=== PATIENT | female | born 1985 | race African-American/Black ===

== ENCOUNTER 2023-12-06 21:54 | Observation (INO) ==
--- NOTE | 2023-12-06 22:27 | Emergency Department Note ---
Impression & Plan Angioedema ADMIT ED Provider Note HPI: History obtained from patient. The patient is a 38-year-old female with history of hypertension, presents to the emergency department from her correctional facility over concern for left lower lip and jaw swelling. Patient states the swelling developed earlier today. Patient is currently at a correctional facility/[employer] and she was given medications there including IM Solu-Medrol as well as oral Benadryl and oral famotidine without relief of her swelling. Patient denies any shortness of breath, she does not have any angioedema of the tongue, she is tolerating her own secretions without issue on my initial evaluation although she does have impressive swelling mostly to the area of the left lower lip and left lateral mouth. Patient saturating well on room air on arrival. ROS: - Per HPI Differential Diagnosis: PAUL inhibitor induced angioedema, anaphylaxis, infection, amongst other potential pathologies. *Outpatient medications and allergy history reviewed. PE: General: Alert HEENT: Normocephalic, trachea midline, significant swelling of the left lower lip consistent with angioedema, there is no swelling of the tongue or uvula Eyes: Extraocular eye movement is intact, no scleral erythema Pulmonary: Clear to auscultation bilaterally, no wheezing Cardio: Regular rate and rhythm GI: Abdomen is soft to palpation : No suprapubic tenderness MSK: No evidence of trauma or malformation of the extremities, no edema Skin: No evidence of rash Neuro: Alert, no focal deficits Psychiatric: Cooperative INDEPENDENT INTERPRETATIONS: manager monitoring: (As interpreted by myself): - An order was placed for continuous cardiac monitoring - Patient was noted to be in sinus rhythm with a rate of 90 Interventions provided in ED: -IM epinephrine, TXA Medical Decision Making: Patient does have angioedema of the left lower lip on arrival, IV was established and patient was placed on electronic device monitor. Patient was given IM epinephrine as well as TXA for angioedema of the left lower lip which was suspected to be PAUL inhibitor induced. She was taken off of her lisinopril today. Patient did not have much improvement of her angioedema of the left lower lip while here in the ED under observation despite these medications. She also did not have any progression of her swelling, her airway is otherwise patent and she is saturating well on room air without any swelling of the uvula or tongue. Patient denies any known exposure to any allergens, she otherwise does not have any wheezing or stridor on exam. She is tolerating her own secretions without issue. I suspect that her angioedema is likely related to her lisinopril. Given the patient's continued angioedema, I do feel that she would be best served for observation admission overnight. I discussed the patient's pre sentation with the on-call hospitalist, Dr. Durand, and the patient was placed for admission in stable condition. Consultants/Discussions held with other healthcare providers: -Hospitalist, Dr. Durand Diagnosis: 1. Angioedema of the left lower lip, acute 2. Angioedema/swelling of the left lower jawline/mandible, acute 3. PAUL inhibitor induced angioedema, acute Disposition: Admission Regis Elder DO Emergency Medicine Past Med/Surg History Problem List (Updated 12/07/23 @ 01:54 by Regis Elder DO) Angioedema (Acute) Social History Smoking Status: Former smoker Preferred Language: Azerbaijani Feels Safe at Home: Yes Allergies Allergies Allergy/AdvReac Type Severity Reaction Status Date / Time lisinopril Allergy Swelling Verified 12/06/23 23:22 of Lip/Tongue/Throat Home Meds Home Medications Medication Instructions Recorded Confirmed amlodipine 10 mg tablet 10 mg PO DAILY 12/06/23 12/07/23 diphenhydramine HCl 25 mg capsule 25 mg PO BID PRN swelling 12/06/23 12/07/23 (Banophen) famotidine 20 mg tablet 20 mg PO BID 12/07/23 12/07/23 prednisone 10 mg tablet 10 mg PO DIRECTED 12/07/23 12/07/23 sertraline 100 mg tablet 100 mg PO HS 12/07/23 12/07/23 trazodone 100 mg tablet 100 mg PO HS 12/07/23 12/07/23 Results & Data (ED) Vital Signs Vital Signs - 24 hr 12/06/23 21:59 12/06/23 22:26 12/06/23 22:36 Temperature 36.8 C Temperature Source Temporal Artery Scan Pulse Rate 77 73 Pulse Rate [Apical] 83 Pulse Rate from SpO2 Sensor Pulse Rhythm [Apical] Regular Pulse Strength [Apical] Normal Respiratory Rate 20 19 Respiratory Effort / Characteristics Non-Labored Spontaneous Respiratory Depth Normal Respiratory Pattern Regular Blood Pressure 151/91 H Blood Pressure [Left Arm] 150/94 H Blood Pressure Mean 111 Blood Pressure Mean [Left Arm] 112 Pulse Oximetry 99 96 Oxygen Delivery Method Room Air Room Air Sepsis Recent Fever Within 48 Hours No Sepsis New/Unexplained Change in Mental Status No Sepsis Action Taken by Nursing No Action Required 12/06/23 23:03 12/06/23 23:12 12/06/23 23:21 Temperature Temperature Source Pulse Rate 95 H 84 95 H Pulse Rate [Apical] Pulse Rate from SpO2 Sensor 94 H 84 100 H Pulse Rhythm [Apical] Pulse Strength [Apical] Respiratory Rate 22 17 19 Respiratory Effort / Characteristics Respiratory Depth Respiratory Pattern Blood Pressure 139/104 H Blood Pressure [Left Arm] Blood Pressure Mean 115 Blood Pressure Mean [Left Arm] Pulse Oximetry 97 99 99 Oxygen Delivery Method Room Air Room Air Room Air Sepsis Recent Fever Within 48 Hours Sepsis New/Unexplained Change in Mental Status Sepsis Action Taken by Nursing 12/06/23 23:35 Temperature Temperature Source Pulse Rate Pulse Rate [Apical] 93 H Pulse Rate from SpO2 Sensor Pulse Rhythm [Apical] Regular Pulse Strength [Apical] Respiratory Rate 20 Respiratory Effort / Characteristics Non-Labored Spontaneous Respiratory Depth Normal Respiratory Pattern Regular Blood Pressure Blood Pressure [Left Arm] 193/96 H Blood Pressure Mean Blood Pressure Mean [Left Arm] 128 Pulse Oximetry 99 Oxygen Delivery Method Room Air Sepsis Recent Fever Within 48 Hours Sepsis New/Unexplained Change in Mental Status Sepsis Action Taken by Nursing Administered Medications Discontinued Medications Epinephrine HCl (Epinephrine Inj 1 Mg/Ml Amp) 0.3 mg IM NOW STA Stop: 12/06/23 22:27 Last Admin: 12/06/23 22:33 Dose: 0.3 mg Documented By: NANCY Tranexamic Acid (Tranexamic Acid / 0.7% Nacl) 1,000 mg in 100 mls @ 600 mls/hr IV NOW STA Stop: 12/06/23 22:50 Last Infusion: 12/06/23 23:32 Dose: Infused Documented By: Admin: 12/06/23 23:20 Dose: 600 mls/hr Documented By: SUSIE Discharge Plan Visit Data Chief Complaint: Facial Injury/Pain Stated Complaint: SWELLING LIP ED Provider: Regis Elder Discharge Problem: Angioedema Forms Stand Alone Forms: [facility] Prescriptions Prescriptions: No Action amlodipine 10 mg Tablet 10 mg PO DAILY diphenhydramine HCl [Banophen] 25 mg Capsule 25 mg PO BID PRN (Reason: swelling) sertraline 100 mg Tablet 100 mg PO HS trazodone 100 mg Tablet 100 mg PO HS famotidine 20 mg Tablet 20 mg PO BID prednisone 10 mg Tablet 10 mg PO DIRECTED Rx Instructions: see taper instructions: take 4 tablets daily on 12/07/23, take 3 tablets daily on 12/07 & 12/09/23, 2 tablets daily on 12/09 & 12/11/23, 1 tablet daily for 12/11 & 12/13/23 Referrals Referrals: PCP,NO [Physician] - Discharge Problem: Angioedema Qualifiers: Encounter type: initial encounter Qualified Code(s): T78.3XXA - Angioneurotic edema, initial encounter
[2023-12-06] MEDS: EPINEPHrine INJ 1 MG/ML AMP IM STA (22:33)
[2023-12-06] MEDS: TRANEXAMIC ACID / 0.7% NACL 1,000 MG/100 ML BAG IV STA (23:20)
--- NOTE | 2023-12-07 01:50 | History & Physical Report ---
Date of Service December 07, 2023 Assessment & Plan (1) Angioedema: Plan: 38-year-old female with past med history significant for hypertension, depression comes from correctional facility because of angioedema of lower lip and chin. Patient states today after breakfast she noticed swelling of the lower lip. Seems in the correctional facility was treated with a steroid, Benadryl and Pepcid but was not getting better and was sent here. In the ER she received IM epinephrine and TXA. As per the guards the swelling is lot better. Patient's denies any shortness of breath. She is swallowing okay. Denies any fever. No cough. No runny nose. No headache. Vision is okay. No chest pain or shortness of breath. No nausea. No abdominal pain. Normal bowel and bladder movements. Patient states she is coughing a lot lately. She states she was started on lisinopril about 6 months ago. Currently hemodynamics are okay. Angioedema of lower lip and chin region possible cause is lisinopril seems received steroid and Benadryl and Pepcid in the correction facility received TXA and IM epinephrine in the ER seems improving will continue with p.o. prednisone, Zyrtec, Pepcid and IV Benadryl as needed close monitor hypertension continue amlodipine IV labetalol as needed depression Home meds DVT prophylaxis SCDs disposition telemetry full code History of Present Illness Chief Complaint: Angioedema of lower lip and chin Primary Care Provider: THI Bassett 38-year-old female with past med history significant for hypertension, depression comes from correctional facility because of angioedema of lower lip and chin. Patient states today after breakfast she noticed swelling of the lower lip. Seems in the correctional facility was treated with a steroid, Benadryl and Pepcid but was not getting better and was sent here. In the ER she received IM epinephrine and TXA. As per the guards the swelling is lot better. Patient's denies any shortness of breath. She is swallowing okay. Denies any fever. No cough. No runny nose. No headache. Vision is okay. No chest pain or shortness of breath. No nausea. No abdominal pain. Normal bowel and bladder movements. Patient states she is coughing a lot lately. She states she was started on lisinopril about 6 months ago. Currently hemodynamics are okay. Past medical history. As mentioned above past surgical history. Patient denies any surgeries. Social history. Patient denies smoking. Denies alcohol. Denies drug use. Family history. Patient does not know any family history. Allergies Allergy/AdvReac Type Severity Reaction Status Date / Time lisinopril Allergy Swelling Verified 12/06/23 23:22 of Lip/Tongue/Throat Home Medications Medication Instructions Recorded Confirmed Type amlodipine 10 mg tablet 10 mg PO DAILY 12/06/23 12/07/23 History diphenhydramine HCl 25 mg capsule 25 mg PO BID PRN swelling 12/06/23 12/07/23 History (Banophen) famotidine 20 mg tablet 20 mg PO BID 12/07/23 12/07/23 History prednisone 10 mg tablet 10 mg PO DIRECTED 12/07/23 12/07/23 History sertraline 100 mg tablet 100 mg PO HS 12/07/23 12/07/23 History trazodone 100 mg tablet 100 mg PO HS 12/07/23 12/07/23 History Past Med/Surg History Problem List (Updated 12/07/23 @ 01:54 by Regis Elder DO) Angioedema (Acute) Social History Smoking Status: Former smoker Tobacco Type: Cigarettes Hx Alcohol Use: No Hx Substance Use: No Preferred Language: Georgian Communication Ability: Effective Police Or Patrol Park Officer Required: No Beliefs That Will Affect Care: None Current [facility]: [facility] Feels Safe at Home: Yes Review of Systems Review of Systems: All systems reviewed & are unremarkable except as noted in HPI & below Physical Exam Physical Exam: General- Not in distress Head- atraumatic Eyes- PERRL. Face: Lower lip swelling and some swelling of chin seen ENT- oropharynx clear. No obvious tounge swelling seen. Neck- supple, no JVD. Lungs- clear to auscultation , no wheezing or crackles. Heart- regular rate and rhythm; no murmur, no gallop. Abdomen- normal bowel sounds, soft, nontender, no distension. Extremities- no pretibial edema, no erythema seen. Neuro- alert, oriented PERRL,no facial palsy; no dysarthria; moves extremities. Results & Data Results & Data Vital Signs (Past 12 Hours) Vital Signs Temp Pulse Pulse Resp BP BP Pulse Ox 12/06/23 23:35 93 H 20 193/96 H 99 12/06/23 23:21 95 H 19 99 12/06/23 23:12 84 17 99 12/06/23 23:03 95 H 22 139/104 H 97 12/06/23 22:36 83 19 150/94 H 96 12/06/23 22:26 73 12/06/23 21:59 36.8 C 77 20 151/91 H 99 O2 Del Method 12/06/23 23:35 Room Air 12/06/23 23:21 Room Air 12/06/23 23:12 Room Air 12/06/23 23:03 Room Air 12/06/23 22:36 Room Air 12/06/23 22:26 12/06/23 21:59 Room Air Code Status & VTE Plan VTE Prophylaxis Plan VTE Prophylaxis will be ordered: Yes (1) Angioedema Encounter type: initial encounter Qualified Code(s): T78.3XXA - Angioneurotic edema, initial encounter
[2023-12-07] MEDS ORDERED: POLYETHYLENE (MIRALAX) 17 GM PACK PO PRN (03:02)
[2023-12-07] MEDS ORDERED: LABETALOL HCL IV 5 MG/ML 20ML IV PRN (03:02)
[2023-12-07] MEDS ORDERED: ACETAMINOPHEN 325 MG TAB PO PRN (03:02)
[2023-12-07] MEDS: SODIUM CHLORIDE 0.9% 1,000 ML IV SCH (04:23)
[2023-12-07 07:46] LABS: Basophils # (auto) 0.01 K/uL (0.00-0.20); Basophils % (auto) 0.1 %; Hematocrit (blood only) 28.3 % (37.0-47.0); Immature Granulocytes % (auto) 0.6 %; Lymphocytes # (auto) 1.08 K/uL (1.20-3.40); Lymphocytes % (auto) 6.5 %; Mean Corpuscular Hemoglobin 22.6 pg (25.0-34.0); Mean Corpuscular Hgb Conc 31.8 g/dL (32.0-36.0); Mean Corpuscular Volume 70.9 fL (80.0-100.0); Mean Platelet Volume 11.1 fL (9.4-12.4); Monocytes # (auto) 0.47 K/uL (0.11-0.59); Monocytes % (auto) 2.8 %; Neutrophils # (auto) 14.93 K/uL (1.40-6.50); Platelet Count 338 K/uL (130-400); RDW Coefficient of Variation 14.1 % (11.5-14.5); RDW Standard Deviation 35.8 fL (36.4-46.3); Red Blood Count 3.99 M/uL (4.20-5.40); White Blood Count 16.59 K/ul (4.8-10.8)
[2023-12-07 07:58] LABS: BUN Creatinine Ratio 13.8 (10-20); Calcium 8.6 mg/dl (8.6-10.3); Est GFR (African American) 133.6 ml/min; Est GFR (Non-African American) 115.3 ml/min; Magnesium 1.5 mg/dl (1.7-2.4); Potassium 3.7 mmol/L (3.5-5.1)
--- NOTE | 2023-12-07 08:34 | XRay Report ---
SINGLE VIEW CHEST CLINICAL HISTORY: Cough FINDINGS: An AP, portable, upright chest radiograph is obtained. No prior studies are available for c omparison at the time of dictation. The cardiomediastinal silhouette is unremarkable. The lungs and p leural spaces are clear. No pneumothorax is seen. The bony thorax is grossly intact. IMPRESSION: No active disease in the chest. ACT 112: Negative or not required by law. Electronically signed by: Mick Zavala M.D. 12/07/2023 8:33 AM
[2023-12-07] MEDS: MAGNESIUM SULFATE / D5W 1 GM/100 ML BAG IV ONE (09:15)
[2023-12-07] MEDS: amLODIPine BESYLATE 5 MG TAB PO SCH (09:15)
[2023-12-07] MEDS: CETIRIZINE HCL 10 MG TABLET PO SCH ×2 (09:15→21:21)
[2023-12-07] MEDS: predniSONE 20 MG TAB PO SCH (09:15)
[2023-12-07] MEDS: FAMOTIDINE 20 MG TAB PO SCH (09:15)
--- NOTE | 2023-12-07 18:48 | Allergy & Immunology Consult ---
Date of Consultation December 07, 2023 Assessment & Plan (1) Lip swelling: I would this episode of angioedema. The differential diagnosis includes hereditary angioedema, acquired angioedema, PAUL inhibitor induced angioedema, idiopathic angioedema. PAUL inhibitor use, PAUL inhibitor induced angioedema will be high on the differential. However, I am suspicious about idiopathic angioedema since. She has noticed dermatographia some and has been getting symptoms of urticaria. She also is in a high stress environment and this is often another trigger. At this point I recommend PAUL inhibitor continue to be discontinued and did not receive restarted. Given that she has idiopathic urticaria/angioedema, PAUL inhibitors may still exacerbate this to make it worse. If she ever needs something similar for cardiac or renal protection in the future, angiotensin receptor blockers would be safe to use. I recommend that she continue on cetirizine I would recommend that she be sent out in the dose of 10 mg p.o. twice daily. And a prednisone taper. It is usually okay to taper by 10 mg every 2 to 3 days. Her blood work showed anemia which appears to be microcytic. She had a left shift, possibly due to prednisone use. Remainder blood work was unremarkable. Although at this point hereditary angioedema will be very very unlikely, I would screen with a C4. If the C4 is normal I would exclude hereditary and acquired. Generally, we usually obtain a tryptase to evaluate for mast cell disorders whi ch can predispose to idiopathic anaphylaxis and thyroid function testing as this could be associated with idiopathic urticaria/angioedema. We can certainly order both of these when we see her for follow-up. Since I would recommend we see her for follow-up in my clinic in about 1 month. Total time for today is 46 minutes which includes reviewing records prior to patient arrival, the [id number] visit, as well as time to record documentation after patient departure. History of Present Illness Reason for Consultation: Angioedema Attending Physician: You Shah MD History of Present Illness This is a presents for evaluation of lip swelling. Patient is currently incarcerated. Yesterday at breakfast she was eating she noticed swelling of the lip, upper primarily in the right side of the face. She was initially given Benadryl, but it did not help and she was transferred to emergency room. She received epinephrine and tranexamic acid. She also has been treated prednisone and Zyrtec. She mentions that about 6 months ago she was started on lisinopril. This was discontinued on hospital and her blood pressure has been managed with labetalol IV and amlodipine. She denies any history prior swelling episodes. However she does have a history of getting itchy skin and noticed that this will flareup with temperature changes and also pressure on the skin. He will note that if she scratches her skin she can get hives at the site of scratching. She does also have significant stress being incarcerated. Her medical history is otherwise unremarkable We reviewed her family history and there is no family history of anyone with angioedema or recurrent hives. Allergies Allergy/AdvReac Type Severity Reaction Status Date / Time lisinopril Allergy Swelling Verified 12/06/23 23:22 of Lip/Tongue/Throat Home Medications Medication Instructions Recorded Confirmed Type amlodipine 10 mg tablet 10 mg PO DAILY 12/06/23 12/07/23 History diphenhydramine HCl 25 mg capsule 25 mg PO BID PRN swelling 12/06/23 12/07/23 History (Banophen) famotidine 20 mg tablet 20 mg PO BID 12/07/23 12/07/23 History prednisone 10 mg tablet 10 mg PO DIRECTED 12/07/23 12/07/23 History sertraline 100 mg tablet 100 mg PO HS 12/07/23 12/07/23 History trazodone 100 mg tablet 100 mg PO HS 12/07/23 12/07/23 History Patient History Medical History (Updated 12/07/23 @ 18:56 by Maikol Abdalla MD) Lip swelling Social History Smoking Status: Former smoker Tobacco Type: Cigarettes Hx Alcohol Use: No Hx Substance Use: No Preferred Language: Polish Communication Ability: Effective Terminal Make Up Operator Required: No Beliefs That Will Affect Care: None Current Living Situation: Other Current Living Situation Comment: [facility] Feels Safe at Home: Yes Physical Exam Constitutional: WD/WN, vitals as above Eyes: no conjunctival abnormality and sclerae not anicteric ENMT: external ear and nose normal, oropharynx normal Neck: trachea midline Respiratory: normal respiratory effort and able to speak in complete sentences; does not use accessory muscles Musculoskeletal: Head/Neck/Chest: head atraumatic Gait: normal gait Skin: + rash (Mild angioedema of the left side of the face.); no lesions Psychiatric: A+Ox3, euthymic affect Results & Data Vital Signs (Past 12 Hours) Vital Signs Temp Pulse Pulse Resp BP BP Pulse Ox 12/07/23 18:18 80 12/07/23 15:00 36.6 C 86 16 131/74 97 12/07/23 13:00 123/75 12/07/23 13:00 80 22 100 12/07/23 12:33 90 17 99 12/07/23 12:00 91 H 16 99 12/07/23 11:39 93 H 99 12/07/23 11:03 72 21 100 12/07/23 11:01 127/87 12/07/23 10:42 79 16 99 12/07/23 10:33 74 23 99 12/07/23 10:09 77 19 99 12/07/23 09:33 86 17 100 12/07/23 09:09 84 23 99 12/07/23 09:00 122/74 12/07/23 08:54 82 20 99 12/07/23 08:42 86 17 99 12/07/23 08:06 78 20 99 12/07/23 07:33 85 99 12/07/23 07:04 80 12/07/23 07:00 96 H 20 100 O2 Del Method 12/07/23 18:18 12/07/23 15:00 Room Air 12/07/23 13:00 12/07/23 13:00 12/07/23 12:33 12/07/23 12:00 12/07/23 11:39 12/07/23 11:03 12/07/23 11:01 12/07/23 10:42 12/07/23 10:33 12/07/23 10:09 12/07/23 09:33 12/07/23 09:09 12/07/23 09:00 12/07/23 08:54 12/07/23 08:42 12/07/23 08:06 12/07/23 07:33 12/07/23 07:04 12/07/23 07:00 Coding Level of Care Code 05675 IN/OBS CONSULT LVL 3,45M Diagnoses Lip swelling R22.0
[2023-12-07] MEDS: SERTRALINE HCL 100 MG TABLET PO SCH (21:22)
[2023-12-07] MEDS: traZODone HCL 100 MG TAB PO SCH (21:22)
[2023-12-08 07:00] LABS: Hematocrit (blood only) 29.8 % (37.0-47.0); Hemoglobin 9.3 g/dl (12.0-16.0); Mean Corpuscular Hemoglobin 22.7 pg (25.0-34.0); Mean Corpuscular Hgb Conc 31.2 g/dL (32.0-36.0); Mean Corpuscular Volume 72.7 fL (80.0-100.0); Mean Platelet Volume 11.9 fL (9.4-12.4); Platelet Count 352 K/uL (130-400); RDW Coefficient of Variation 14.4 % (11.5-14.5); RDW Standard Deviation 37.9 fL (36.4-46.3); White Blood Count 19.99 K/ul (4.8-10.8)
[2023-12-08 07:12] LABS: BUN Creatinine Ratio 17.8 (10-20); Calcium 8.6 mg/dl (8.6-10.3); Creatinine Clr Calc Pharmacy 119.1 ml/min; Est GFR (African American) 119.4 ml/min; Magnesium 1.8 mg/dl (1.7-2.4); Phosphorus 3.2 mg/dl (2.5-4.9); Potassium 3.6 mmol/L (3.5-5.1)
[2023-12-08 08:34] VITALS: BP 124/63; PULSE 79; RESP 18; TEMP 98.2; O2SAT 96
--- NOTE | 2023-12-08 11:16 | Discharge Summary ---
Date of Service December 08, 2023 Admission HPI Per Admitting Provider 38-year-old female with past med history significant for hypertension, depression comes from correctional facility because of angioedema of lower lip and chin. Patient states today after breakfast she noticed swelling of the lower lip. Seems in the correctional facility was treated with a steroid, Benadryl and Pepcid but was not getting better and was sent here. In the ER she received IM epinephrine and TXA. As per the guards the swelling is lot better. Patient's denies any shortness of breath. She is swallowing okay. Denies any fever. No cough. No runny nose. No headache. Vision is okay. No chest pain or shortness of breath. No nausea. No abdominal pain. Normal bowel and bladder movements. Patient states she is coughing a lot lately. She states she was started on lisinopril about 6 months ago. Currently hemodynamics are okay. Past medical history. As mentioned above past surgical history. Patient denies any surgeries. Social history. Patient denies smoking. Denies alcohol. Denies drug use. Family history. Patient does not know any family history. Admission Exam Per Admitting Provider General- Not in distress Head- atraumatic Eyes- PERRL. Face: Lower lip swelling and some swelling of chin seen ENT- oropharynx clear. No obvious tounge swelling seen. Neck- supple, no JVD. Lungs- clear to auscultation , no wheezing or crackles. Heart- regular rate and rhythm; no murmur, no gallop. Abdomen- normal bowel sounds, soft, nontender, no distension. Extremities- no pretibial edema, no erythema seen. Neuro- alert, oriented PERRL,no facial palsy; no dysarthria; moves extremities. Principal Diagnosis Angioedema Discharge Exam General- WD/WN F in NAD Head- atraumatic Eyes- PERRL. Face: Lower lip swelling and some swelling of chin seen (improved from previous) ENT- oropharynx clear. Neck- supple, no JVD. Lungs- clear to auscultation , no wheezing or crackles. Heart- regular rate and rhythm; no murmur, no gallop. Abdomen- normal bowel sounds, soft, nontender, no distension. Extremities- no pretibial edema, no erythema seen. Neuro- alert, oriented PERRL,no facial palsy; no dysarthria; moves extremities. Discharge Data Allergies Allergy/AdvReac Type Severity Reaction Status Date / Time lisinopril Allergy Swelling Verified 12/06/23 23:22 of Lip/Tongue/Throat Consultations 12/07/23 00:03 ED Decision to Admit Stat 12/07/23 08:00 Consult Allergy / Immunology Routine Hospital Course (1) Angioedema: 38-year-old female with past med history significant for hypertension, depression comes from correctional facility because of angioedema of lower lip and chin. Patient states today after breakfast she noticed swelling of the lower lip. Seems in the correctional facility was treated with a steroid, Benadryl and Pepcid but was not getting better and was sent here. In the ER she received IM epinephrine and TXA. As per the guards the swelling is lot better. Patient's denies any shortness of breath. She is swallowing okay. Denies any fever. No cough. No runny nose. No headache. Vision is okay. No chest pain or shortness of breath. No nausea. No abdominal pain. Normal bowel and bladder movements. Patient states she is coughing a lot lately. She states she was started on lisinopril about 6 months ago. Currently hemodynamics are okay. Angioedema of lower lip and chin region possible cause is lisinopril seems received steroid and Benadryl and Pepcid in the correction facility received TXA and IM epinephrine in the ER Much improved now continued with p.o. prednisone, Zyrtec, Pepcid and IV Benadryl as needed Allergy/immunology consulted - The differential diagnosis includes hereditary angioedema, acquired angioedema, PAUL inhibitor induced angioedema, idiopathic angioedema. PAUL inhibitor use, PAUL inhibitor induced angioedema will be high on the differential. However, I am suspicious about idiopathic angioedema since. She has noticed dermatographia some and has been getting symptoms of urticaria. She also is in a high stress environment and this is often another trigger. At this point I recommend PAUL inhibitor continue to be discontinued and did not receive restarted. Given that she has idiopathic urticaria/angioedema, PAUL inhibitors may still exacerbate this to make it worse. If she ever needs something similar for cardiac or renal protection in the future, angiotensin receptor blockers would be safe to use. I recommend that she continue on cetirizine I would recommend that she be sent out in the dose of 10 mg p.o. twice daily. And a prednisone taper. It is usually okay to taper by 10 mg every 2 to 3 days. Her blood work showed anemia which appears to be microcytic. She had a left shift, possibly due to prednisone use. Remainder blood work was unremarkable. Although at this point hereditary angioedema will be very very unlikely, I would screen with a C4. If the C4 is normal I would exclude hereditary and acquired. Generally, we usually obtain a tryptase to evaluate for mast cell disorders which can predispose to idiopathic anaphylaxis and thyroid function testing as this could be associated with idiopathic urticaria/angioedema. We can certainly order both of these when we see her for follow-up. I would recommend we see her for follow-up in my clinic in about 1 month. Hypertension - stopped lisinopril continue amlodipine IV labetalol as needed depression Home meds Total Time Total Time Spent Total Time Spent (In Minutes): 40 Discharge Plan Discharge Items Patient Disposition: [facility] Reason For Visit: ANGIOEDEMA Discharge Diagnosis: Angioedema Activity: Per Instructions section Non-emergency contact: Primary Care Provider Call non-emergency contact if: you have any medication questions and your symptoms worsen Follow-up/Referrals: Danyelle NESS [Primary Care Provider] - Diet: Regular Addtl Attending Provider Instructions: Follow up with your primary care doctor, and also follow up with insurance administrator. Continue taking Zyrtec 10 mg twice a day and prednisone 60 mg daily. Every 2-3 days, decrease prednisone dose by 10 mg (taper). The allergy physician plans to obtain more tests/ blood work at your follow up appointment with them. Stop taking lisinopril. Take amlodipine 10 mg daily and continue to monitor your blood pressure. Pending Studies at Discharge: No Stand-Alone Forms: My [facility] Skilled Items Patient informed of condition?: Yes Discharge Level of Care: Other Communicable Disease: No Discharge Prognosis: Stable Lines: None Urinary Catheter: No Medications and DC Order Prescriptions: New cetirizine 10 mg Tablet 10 mg PO BID 10 Days Qty: 20 0RF prednisone 20 mg Tablet 60 mg PO DAILY 1 Days Qty: 3 0RF Continued amlodipine 10 mg Tablet 10 mg PO DAILY diphenhydramine HCl [Banophen] 25 mg Capsule 25 mg PO BID PRN (Reason: swelling) sertraline 100 mg Tablet 100 mg PO HS trazodone 100 mg Tablet 100 mg PO HS famotidine 20 mg Tablet 20 mg PO BID Discontinued prednisone 10 mg Tablet 10 mg PO DIRECTED Rx Instructions: see taper instructions: take 4 tablets daily on 12/07/23, take 3 tablets daily on 12/07 & 12/09/23, 2 tablets daily on 12/09 & 12/11/23, 1 tablet daily for 12/11 & 12/13/23 Discharge Orders: Discharge Order (Routine); Ordered 12/08/23 Ordered By: You Shah Admission Data Admit Date/Time: 12/07/23 01:41 Attending Provider: You Shah Admit Provider: Jarocho Durand Primary Care Provider: Danyelle NESS Other Providers: Jarocho Durand; Maikol Abdalla
[2023-12-08] MEDS: POTASSIUM CHLORIDE CRTAB 20 MEQ TABCR PO STA (11:51)
[2023-12-08] MEDS: diphenhydrAMINE 50 MG/ML VIAL IV PRN (12:13)
[2023-12-08] MEDS: FAMOTIDINE 20MG IV PUSH 20 MG/5 ML SYR IV STA (13:28)
[2023-12-08] MEDS: methylPREDNISolone 60 MG in SYRINGE 0 ML IV ONE (14:35)
== END 2023-12-08 17:07 | DRG 916 ==
LOC: ED 21:54 → INTOOBSV 12-07 01:41 → EDINP 12-07 01:41 → 2S 12-07 03:03